=== PATIENT | female | born 1960 | race Native Hawaiian/Other Pacific Islander ===

== ENCOUNTER 2019-05-05 09:17 | Outpatient (CLI) | payer OTHER ==
[2019-05-05 10:36] LABS: PLATELET COUNT 273 K/uL (152-353)
[2019-05-05 10:55] LABS: POTASSIUM 3.6 mmol/L (3.6-5.2)
== END 2019-05-05 21:49 | disposition home or self-care (01) ==
LOC: RAD 09:17
PROVIDERS: Nurse Practitioner Family
DX: M85.89 Other specified disorders of bone density and structure, multiple sites (principal); E78.2 Mixed hyperlipidemia; M25.552 Pain in left hip; M54.5 Low back pain; R11.0 Nausea
CPT/HCPCS: 36415; 80053; 80061; 82626; 82672; 84144; 84403; 84443; 85027

== ENCOUNTER 2021-06-14 10:19 | Outpatient (CLI) | payer OTHER | END 2021-06-14 19:24 | disposition home or self-care (01) | LOC: RAD 10:19 | PROVIDERS: ATTEND Nurse Practitioner Family | DX: M85.89 Other specified disorders of bone density and structure, multiple sites (principal) ==